=== PATIENT | female | born 1990 | race Asian ===

== ENCOUNTER → 2016-11-02 | Outpatient (CLI) | payer OTHER ==
[~2016-11-02] MED LIST: OB CCAP2 PO; PREN29TA PO
== END ==
LOC: HPND 10:16
PROVIDERS: ATTEND Family Medicine
DX: Z34.90 Encounter for supervision of normal pregnancy, unspecified, unspecified trimester (principal)
CPT/HCPCS: 76801

== ENCOUNTER → 2017-01-11 | Outpatient (CLI) | payer OTHER ==
[~2017-01-11] MED LIST changes: +AZIT500T2 PO; -PREN29TA PO
== END ==
LOC: HPND 08:05
PROVIDERS: ATTEND Family Medicine
DX: Z36 Encounter for antenatal screening of mother (principal)
CPT/HCPCS: 76811

== ENCOUNTER → 2017-04-04 | Outpatient (CLI) | payer OTHER ==
[~2017-04-04] MED LIST changes: -AZIT500T2 PO; +FERR325T18 PO; -OB CCAP2 PO
== END ==
LOC: HPND 08:05
PROVIDERS: ATTEND Family Medicine
DX: O35.1XX0 Maternal care for (suspected) chromosomal abnormality in fetus, not applicable or unspecified (principal); Z3A.00 Weeks of gestation of pregnancy not specified
CPT/HCPCS: 76816

== ENCOUNTER → 2017-05-02 | Outpatient (CLI) | payer OTHER | LOC: HPND 08:08 | PROVIDERS: ATTEND Family Medicine | DX: O35.1XX0 Maternal care for (suspected) chromosomal abnormality in fetus, not applicable or unspecified (principal); O26.843 Uterine size-date discrepancy, third trimester | CPT/HCPCS: 76816 ==

== ENCOUNTER 2017-05-28 09:13 | Inpatient (IN) | payer OTHER ==
[2017-05-28] VITALS (29 sets, daily range): BP systolic 90–135; BP diastolic 61–82; PULSE 77–109; RESP 16–18; TEMP 98.2–99.8
--- NOTE | 2017-05-28 09:49 | PD ---
HPI Travel History International Travel<30 Days: No Contact w/Intl Traveler<30Days: No Known Affected Area: No (Su Vazquez MD R1) History of Present Illness HPI 27 yr old G1PO at 38/5 weeks presenting with ROM. She is a patient of Dr. Rasta Pink. She states that her "water broke" at approximately 7:30am this morning. She came to the ED immediately after. AmniSure positive. She endorses good movement. She is darin every 4-5 min on tocometer. She denies vaginal bleeding. GBS negative. (Su Vazquez MD R1) History Past Medical History Medical History: Denies Significant Hx (Su Vazquez MD R1) Past Surgical History Surgical History: No Previous Surgery (Su Vazquez MD R1) Family History Family History: Negative (Su Vazquez MD) Social History Alcohol Use: No Tobacco Use: No Substance Abuse: No (Su Vazquez MD R1) Allergies-Medications (Allergen,Severity, Reaction): Coded Allergies: No Known Allergies (Unverified Adverse Reaction, Unknown, 04/06/17) Home Meds Active Scripts Ferrous Sulfate (Ferrous Sulfate) 325 Mg (65 Mg Iron) Tablet, 325 MG PO BIDPC for Nutritional Supplement, #60 TAB 5 Refills Prov:Rasta Pink MD R3 02/28/17 Review of Systems Except as stated in HPI: all other systems reviewed are Neg (Su Vazquez MD R1) Physical Exam Narrative GENERAL: Well-nourished, well-developed patient. SKIN: Warm and dry. HEAD: Normocephalic and atraumatic. EYES: No scleral icterus. No injection or drainage. ENT: No nasal drainage noted. Mucous membranes pink. Airway patent. NECK: Supple, trachea midline. No JVD. CARDIOVASCULAR: Regular rate and rhythm without murmurs, gallops, or rubs. RESPIRATORY: Breath sounds equal bilaterally. No accessory muscle use. ABDOMEN/GI: Abdomen soft, non-tender, bowel sounds present, no rebound, no guarding GENITOURINARY: External Genitalia: intact and normal in appearance Cervix: posterior Dilatation: 1cm Effacement: 50% Station: -3 Presentation: vertex Membranes: ruptured Uterine Contractions: every 4-5 min- FHT's: Category: 1 Baseline: 120s Reactive: yes Variability: moderate Decels: no EXTREMITIES: No cyanosis or edema. BACK: Nontender without obvious deformity. NEUROLOGICAL: Awake and alert. Motor and sensory grossly within normal limits. Five out of 5 muscle strength in all muscle groups. Normal speech. (Su Vazquez MD R1) Data Data Vital Signs Reviewed: Yes Orders Orders Ob (2e) Additional Admit Info (05/28/17 09:43) Group B Strep: Negative (Su Vazquez MD R1) MDM Medical Record Reviewed: Yes Plan 27yr old at 38/5 weeks present with ROM. Admit to L & D. 1. Intrauterine -FHTs category 1, reassuring -AmniSure positive -Cervical ripening on with Cervidil -Continue routine OB care 2. GBS negative sdw Dr. Guerra (Su Vazquez MD R1) Attending Attestation Patient seen and evaluated with resident under direct supervision, agree with assessment and plan. (Nicanor Madera MD) Su Vazquez MD R1 May 28, 2017 09:49 Nicanor Madera MD May 29, 2017 10:06
--- NOTE | 2017-05-28 09:59 | HHI.HP ---
History & Physical H&P Patient Name: Sherrill Calle Unit Number: [id number] Date of : 1990 Patient Status: Registered Emergency Room Attending Doctor: Nicanor Madera MD HPI HPI Travel History International Travel<30 Days: No Contact w/Intl Traveler<30Days: No Known Affected Area: No History of Present Illness HPI 27 yr old G1PO at 38/5 weeks presenting with ROM. She is a patient of Dr. Rasta Pink. She states that her "water broke" at approximately 7:30am this morning. She came to the ED immediately after. AmniSure positive. She endorses good movement. She is darin every 4-5 min on tocometer. She denies vaginal bleeding. GBS negative. History (Limited) History Past Medical History Medical History: Denies Significant Hx Past Surgical History Surgical History: No Previous Surgery Family History Family History: Negative Social History Alcohol Use: No Tobacco Use: No Substance Abuse: No Allergies-Medications Allergies-Medications (Allergen,Severity, Reaction): Coded Allergies: No Known Allergies (Unverified Adverse Reaction, Unknown, 04/06/17) Home Meds Active Scripts Ferrous Sulfate (Ferrous Sulfate) 325 Mg (65 Mg Iron) Tablet, 325 MG PO BIDPC for Nutritional Supplement, #60 TAB 5 Refills Prov:Rasta Pink MD R3 02/28/17 ROS Review of Systems Except as stated in HPI: all other systems reviewed are Neg Physical Exam Physical Exam Narrative GENERAL: Well-nourished, well-developed patient. SKIN: Warm and dry. HEAD: Normocephalic and atraumatic. EYES: No scleral icterus. No injection or drainage. ENT: No nasal drainage noted. Mucous membranes pink. Airway patent. NECK: Supple, trachea midline. No JVD. CARDIOVASCULAR: Regular rate and rhythm without murmurs, gallops, or rubs. RESPIRATORY: Breath sounds equal bilaterally. No accessory muscle use. ABDOMEN/GI: Abdomen soft, non-tender, bowel sounds present, no rebound, no guarding GENITOURINARY: External Genitalia: intact and normal in appearance Cervix: posterior Dilatation: 1cm Effacement: 50% Station: -3 Presentation: vertex Membranes: ruptured Uterine Contractions: every 4-5 min- FHT's: Category: 1 Baseline: 120s Reactive: yes Variability: moderate Decels: no EXTREMITIES: No cyanosis or edema. BACK: Nontender without obvious deformity. NEUROLOGICAL: Awake and alert. Motor and sensory grossly within normal limits. Five out of 5 muscle strength in all muscle groups. Normal speech. Data Data Data Vital Signs Reviewed: Yes Orders Orders Ob (2e) Additional Admit Info (05/28/17 09:43) Group B Strep: Negative MDM MDM Medical Record Reviewed: Yes Plan 27yr old at 38/5 weeks present with ROM. Admit to L & D. 1. Intrauterine -FHTs category 1, reassuring -AmniSure positive -Cervical ripening with Cervidil -Continue routine OB care 2. GBS negative sdw Su Ray MD R1 May 28, 2017 09:49 (Su Vazquez MD R1) H&P Patient seen and evaluated with resident under direct supervision, agree with assessment and plan. (Nicanor Madera MD) Su Vazquez MD R1 May 28, 2017 09:59 Nicanor Madera MD May 29, 2017 10:07
[2017-05-28] MEDS ORDERED: LACTATED RINGER'S 1000 ML INJ 1,000 ML IV PRN (10:04)
[2017-05-28] MEDS ORDERED: MINERAL OIL 10 ML VIAL TOPICAL PRN (10:15)
[2017-05-28] MEDS ORDERED: LIDOCAINE HCL 1% 50 ML VIAL I-DERMAL PRN (10:15)
[2017-05-28] MEDS ORDERED: OXYTOCIN 30 UNITS-500ML PREMIX 500 ML IV ONE (10:15)
[2017-05-28] MEDS ORDERED: LIDOCAINE HCL 1% 50 ML VIAL INFIL PRN (10:15)
[2017-05-28] MEDS ORDERED: CITRIC ACID-SODIUM CITRATE LIQ 30 ML UDC PO SCH (10:15)
[2017-05-28] MEDS ORDERED: SODIUM CHLORID 0.9% 500 ML INJ 500 ML IV PRN (10:15)
[2017-05-28 10:19] LABS: AUTOMATED NEUTROPHIL # 7.9 TH/MM3 (1.8-7.7); BASOPHIL % 0.2 % (0.0-2.0); EOSINOPHIL # 0.1 TH/MM3 (0-0.4); EOSINOPHIL % 0.8 % (0.0-4.0); HEMATOCRIT 35.1 % (35.0-46.0); HEMOGLOBIN 11.6 GM/DL (11.6-15.3); LYMPH % 21.2 % (9.0-44.0); LYMPHOCYTE # 2.5 TH/MM3 (1.0-4.8); MEAN CORPUSCULAR HEMOGLOBIN 26.8 PG (27.0-34.0); MEAN PLATELET VOLUME 7.6 FL (7.0-11.0); MONO % 9.9 % (0.0-8.0); MONOCYTE # 1.2 TH/MM3 (0-0.9); NEUT % 67.9 % (16.0-70.0); PLATELET COUNT 299 TH/MM3 (150-450); RED BLOOD COUNT 4.33 MIL/MM3 (4.00-5.30); RED CELL DISTRIBUTION WIDTH 15.4 % (11.6-17.2); WHITE BLOOD COUNT 11.7 TH/MM3 (4.0-11.0)
[2017-05-28] MEDS ORDERED: SODIUM CHLOR 0.9% 1000 ML INJ 1,000 ML IV PRN (10:24)
[2017-05-28 10:47] LABS: BACTERIA, URINE OCC /hpf; BILIRUBIN, URINE NEG (NEG); BLOOD, URINE NEG (NEG); GLUCOSE,URINE NEG (NEG); KETONE, URINE NEG (NEG); NITRITE,URINE NEG (NEG); SQUAMOUS EPITHELIAL CELL URINE 1 /hpf (0-5); URINE COLOR LIGHT-YELLOW (YELLW/STRAW); URINE LEUKOCYTE ESTERASE NEG (NEG)
[2017-05-28] MEDS ORDERED: DINOPROSTONE 10 MG VAG INSERT VAGINAL ONE (11:00)
[2017-05-28] MEDS: LACTATED RINGER'S 1000 ML INJ 1,000 ML IV SCH ×2 (11:02→18:15)
--- NOTE | 2017-05-28 13:04 | PD.LABORPN ---
Subjective Subjective Pt seen resting comfortably in bed. She denies being in any pain. She denies any additional acute concerns. (Rasta Pink MD R3) Collaborating MD Comments Patient seen and evaluated with resident under direct supervision, agree with assessment and plan. (Nicanor Madera MD) Objective Vital Signs Vital Signs Date Time Temp Pulse Resp B/P (MAP) Pulse Ox O2 Delivery O2 Flow Rate FiO2 05/28/17 12:30 16 05/28/17 11:30 98.2 05/28/17 11:29 88 116/73 (87) 05/28/17 11:29 16 05/28/17 11:00 16 05/28/17 10:24 16 05/28/17 10:23 81 98/82 (87) Objective Pelvic Exam: preformed 0945 Dilatation: 1 Effacement: 50% Station: -3 Presentation: Vertex Membranes: Ruptured at Uterine Contractions: Q1-3 minutes FHT's: Category: 1 Baseline: 130 Reactive: + Variability: moderate Decels: Absent (Rasta Pink MD R3) Assessment/Plan Assessment and Plan Pt is a 27 year old G1 at 38/5 based on LMP confirmed by US presenting due to SROM. GBS negative. -Category 1 tracing, reassuring -Cervidil in place -Continue routine expectant management -Anticipate DW Dr. Castrejon (Rasta Pink MD R3) Rasta Pink MD R3 May 28, 2017 13:03 Nicanor Madera MD May 30, 2017 07:35
--- NOTE | 2017-05-28 17:08 | PD.LABORPN ---
Subjective Subjective Oral temperature: 99.2. Pt seen resting in bed. She endorses not feeling well. She has some pain in her upper abdomen she attributes to baby's position. She denies any additional acute concerns. (Rasta Pink MD R3) Objective Vital Signs Vital Signs Date Time Temp Pulse Resp B/P (MAP) Pulse Ox O2 Delivery O2 Flow Rate FiO2 05/28/17 16:44 99.8 16 05/28/17 16:43 97 108/75 (86) 05/28/17 15:45 16 05/28/17 14:45 16 05/28/17 13:45 99.2 05/28/17 13:40 16 05/28/17 13:00 16 05/28/17 12:30 16 05/28/17 11:30 98.2 05/28/17 11:29 88 116/73 (87) 05/28/17 11:29 16 05/28/17 11:00 16 05/28/17 10:24 16 05/28/17 10:23 81 98/82 (87) Objective Pelvic Exam: preformed on 944 Cervix: soft Dilatation: 1cm Effacement: 50% Station: -3 Presentation: Vertex Membranes: ruptured Uterine Contractions: Q2-3min FHT's: Category: 1 Baseline: 1 Reactive: + Variability: Moderate Decels: absent (Rasta Pink MD R3) Assessment/Plan Assessment and Plan Pt is a 27 year old G1 at 38/5 based on LMP confirmed by US presenting due to SROM. GBS negative. -Category 1 tracing, reassuring -Continue to monitor vitals -Cervidil in place, to be removed at approximately 11:15 (after 12hrs) -Continue routine expectant management -Anticipate WDW Dr. Castrejon (Rasta Pink MD R3) Assessment and Plan Patient seen and evaluated with resident under direct supervision, agree with assessment and plan. (Nicanor Madera MD) Rasta Pink MD R3 May 28, 2017 17:08 Nicanor Madera MD May 30, 2017 07:35
[2017-05-28] MEDS ORDERED: MISOPROSTOL 100 MCG TAB VAGINAL ONE (19:45)
[2017-05-28] MEDS ORDERED: SODIUM CHLORIDE 0.9% FLUSH 10 ML FLUSH IV FLUSH PRN (19:45)
--- NOTE | 2017-05-28 19:55 | HHI.PR ---
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 Ts cat 1. Pike with ctx q1-2m. Cvx unchanged. Expectant management at this time. When ctx space, place [facility] [place] cytote. Emily Castrejon MD May 28, 2017 19:55
[2017-05-28] MEDS ORDERED: ONDANSETRON HCL 4 MG/2 ML VIAL IV PUSH PRN (20:00)
[2017-05-28] MEDS ORDERED: SODIUM CHLORIDE 0.9% FLUSH 10 ML FLUSH IV FLUSH SCH (21:00)
--- NOTE | 2017-05-28 22:14 | PD.LABORPN ---
Subjective Subjective Pt resting in bed. Contractions are more painful, she requests pain medication. (Rasta Pink MD R3) Objective Vital Signs Vital Signs Date Time Temp Pulse Resp B/P (MAP) Pulse Ox O2 Delivery O2 Flow Rate FiO2 05/28/17 19:45 18 05/28/17 19:17 18 05/28/17 19:16 99.0 05/28/17 19:16 81 119/69 (86) 05/28/17 18:15 81 116/61 (79) 05/28/17 18:15 16 05/28/17 17:29 99.2 16 05/28/17 17:02 84 114/77 (89) 05/28/17 16:44 99.8 16 05/28/17 16:43 97 108/75 (86) 05/28/17 15:45 16 05/28/17 14:45 16 Objective Pelvic Exam: Cervix: soft, stretchy Dilatation: 9-10 Effacement: 50% Station: -3 Presentation:Vertex Membranes: Ruptured Uterine Contractions: Q 1-4 minutes FHT's: Category: 1 Baseline: 130 Reactive: + Variability: Moderate Decels: Absent (Rasta Pink MD R3) Assessment/Plan Assessment and Plan Pt is a 27 year old G1 at 38/5 based on LMP confirmed by US presenting due to SROM. GBS negative. -Category 1 tracing, reassuring -Continue to monitor vitals -Cervidil no longer in place, displaced around 1945 when pt got out of bed to use the restroom -Continue routine expectant management -Cytotec 25mcg to be placed when contractions become less frequent -Anticipate WDW Dr. Castrejon (Rasta Pink MD R3) Attestation Patient seen and evaluated with resident under direct supervision, agree with assessment and plan. (Nicanor Madera MD) Rasta Pink MD R3 May 28, 2017 22:14 Nicanor Madera MD May 30, 2017 07:34
[2017-05-28] MEDS ORDERED: fentaNYL 2MCG-BUPIV 0.125% INJ 100 ML ONE (23:35)
[2017-05-29] VITALS (76 sets, daily range): BP systolic 100–145; BP diastolic 55–88; PULSE 68–112; RESP 16–20; TEMP 97.7–101; O2SAT 97–100
--- NOTE | 2017-05-29 03:29 | PD.LABORPN ---
Subjective Subjective Pt resting comfortably. Pain controlled with epidural. (Rasta Pink MD R3) Objective Vital Signs Vital Signs Date Time Temp Pulse Resp B/P (MAP) Pulse Ox O2 Delivery O2 Flow Rate FiO2 05/29/17 03:00 78 107/65 (79) 05/29/17 02:30 71 105/64 (78) 05/29/17 02:29 98.8 05/29/17 02:15 75 101/66 (78) 05/29/17 02:00 70 110/69 (83) 05/29/17 01:45 76 105/66 (79) 05/29/17 01:30 72 101/64 (76) 05/29/17 01:15 74 105/61 (76) 05/29/17 01:00 79 102/62 (75) 05/29/17 00:45 74 104/62 (76) 05/29/17 00:30 71 102/63 (76) 05/29/17 00:15 92 105/58 (74) 05/29/17 00:15 75 05/29/17 00:15 98.9 05/29/17 00:10 102 05/29/17 00:06 95 113/64 (80) 05/29/17 00:05 83 05/29/17 00:03 85 103/63 (76) 05/29/17 00:00 96 05/29/17 00:00 110 108/65 (79) 05/28/17 23:57 97 112/65 (81) 05/28/17 23:55 88 05/28/17 23:54 83 131/71 (91) 05/28/17 23:51 77 135/73 (93) 05/28/17 23:50 99 05/28/17 23:48 109 134/79 (97) 05/28/17 23:45 88 05/28/17 23:45 104 131/62 (85) 05/28/17 23:44 90/64 (73) 05/28/17 23:44 106 05/28/17 23:40 87 05/28/17 21:45 98.9 05/28/17 19:45 18 Objective Pelvic Exam: Cervix: midposition, soft and stretchy Dilatation: 6-7 Effacement: 60% Station: -3 Presentation: vertex Membranes: ruptured Uterine Contractions: Q2-4 minutes FHT's: Category: 1 Baseline: 130 Reactive: + Variability: Moderate Decels: Early (Rasta Pink MD R3) Assessment/Plan Assessment and Plan Pt is a 27 year old G1 at 38/6 based on LMP confirmed by US in active labor. -Category 1 tracing, reassuring -Continue to monitor vitals -Will start Pitocin at rate of 1-1-30 -Continue routine expectant management -Anticipate DW Dr. Castrejon (Rasta Pink MD R3) Assessment and Plan Patient seen and evaluated with resident under direct supervision, agree with assessment and plan. (Nicanor Madera MD) Rasta Pink MD R3 May 29, 2017 03:29 Nicanor Madera MD May 30, 2017 07:33
[2017-05-29] MEDS ORDERED: OXYTOCIN 30 UNITS-500ML PREMIX 500 ML ONE (03:44)
[2017-05-29] MEDS ORDERED: OXYTOCIN 30 UNITS-500ML PREMIX 500 ML IV PRN (03:45)
--- NOTE | 2017-05-29 07:50 | PD.LABORPN ---
Subjective Subjective Pitocin at rate of 7. Pt afebrile. Rupture time slightly over 24hrs. (Rasta Pink MD R3) Objective Vital Signs Vital Signs Date Time Temp Pulse Resp B/P (MAP) Pulse Ox O2 Delivery O2 Flow Rate FiO2 05/29/17 07:30 89 118/57 (77) 05/29/17 07:15 94 120/65 (83) 05/29/17 07:02 98.5 16 05/29/17 07:00 98 126/74 (91) 05/29/17 06:45 89 126/77 (93) 05/29/17 06:30 91 118/73 (88) 05/29/17 06:15 80 110/68 (82) 05/29/17 06:00 87 104/65 (78) 05/29/17 05:45 85 105/69 (81) 05/29/17 05:30 83 121/70 (87) 05/29/17 05:15 89 118/65 (82) 05/29/17 05:00 98.7 05/29/17 05:00 95 122/76 (91) 05/29/17 04:45 82 119/68 (85) 05/29/17 04:30 97 111/71 (84) 05/29/17 04:15 93 115/68 (84) 05/29/17 04:15 18 05/29/17 04:00 92 113/69 (84) 05/29/17 03:45 84 114/66 (82) 05/29/17 03:30 92 112/74 (87) 05/29/17 03:15 88 128/72 (90) 05/29/17 03:00 78 107/65 (79) 05/29/17 02:45 68 100/64 (76) 05/29/17 02:30 71 105/64 (78) 05/29/17 02:29 98.8 05/29/17 02:15 75 101/66 (78) 05/29/17 02:00 70 110/69 (83) 05/29/17 01:45 76 105/66 (79) 05/29/17 01:30 72 101/64 (76) 05/29/17 01:15 74 105/61 (76) 05/29/17 01:00 79 102/62 (75) 05/29/17 00:45 74 104/62 (76) 05/29/17 00:30 71 102/63 (76) 05/29/17 00:15 92 105/58 (74) 05/29/17 00:15 75 05/29/17 00:15 98.9 05/29/17 00:10 102 05/29/17 00:06 95 113/64 (80) 05/29/17 00:05 83 05/29/17 00:03 85 103/63 (76) 05/29/17 00:00 96 05/29/17 00:00 110 108/65 (79) 05/28/17 23:57 97 112/65 (81) 05/28/17 23:55 88 05/28/17 23:54 83 131/71 (91) 05/28/17 23:51 77 135/73 (93) Objective Pelvic Exam: Cervix: Soft stretchy Dilatation: 7cm Effacement: 90% Station: -2 Presentation: Vertex Membranes: Ruptured Uterine Contractions: Q1-2 minutes FHT's: Category: 1 Baseline: 120 Reactive: + Variability: Moderate Decels: Early (Rasta Pink MD R3) Assessment/Plan Assessment and Plan Pt is a 27 year old G1 at 38/6 based on LMP confirmed by US in active labor. -Category 1 tracing, reassuring -Continue to monitor vitals -Continue Pitocin, increase at rate of 1-1-30 -Continue routine expectant management -Anticipate WDW Dr. Castrejon (Rasta Pink MD R3) Assessment and Plan Patient seen and evaluated with resident under direct supervision, agree with assessment and plan. (Nicanor Madera MD) Rasta Pink MD R3 May 29, 2017 07:50 Nicanor Madera MD May 30, 2017 07:32
[2017-05-29] MEDS ORDERED: fentaNYL 2MCG-BUPIV 0.125% INJ 100 ML ONE (08:09)
--- NOTE | 2017-05-29 11:08 | PD.LABORPN ---
Subjective Subjective Pt resting in bed. Pain well controlled with epidural. She endorses pressure in lower abdomen and lower back. Pitocin at 10. (Rasta Pink MD R3) Objective Vital Signs Vital Signs Date Time Temp Pulse Resp B/P (MAP) Pulse Ox O2 Delivery O2 Flow Rate FiO2 05/29/17 10:45 86 123/72 (89) 05/29/17 10:30 90 110/64 (79) 05/29/17 10:15 96 128/74 (92) 05/29/17 10:00 93 130/76 (94) 05/29/17 09:45 93 126/81 (96) 05/29/17 09:30 92 125/74 (91) 05/29/17 09:17 99.0 18 05/29/17 09:15 89 133/82 (99) 05/29/17 09:00 111 118/81 (93) 05/29/17 08:45 16 05/29/17 08:45 87 133/80 (97) 05/29/17 08:30 98 124/67 (86) 05/29/17 08:15 105 118/68 (85) 05/29/17 08:00 91 115/55 (75) 05/29/17 07:45 96 119/81 (94) 05/29/17 07:30 89 118/57 (77) 05/29/17 07:15 94 120/65 (83) 05/29/17 07:02 98.5 16 05/29/17 07:00 98 126/74 (91) 05/29/17 06:45 89 126/77 (93) 05/29/17 06:30 91 118/73 (88) 05/29/17 06:15 80 110/68 (82) 05/29/17 06:00 87 104/65 (78) 05/29/17 05:45 85 105/69 (81) 05/29/17 05:30 83 121/70 (87) 05/29/17 05:15 89 118/65 (82) 05/29/17 05:00 98.7 05/29/17 05:00 95 122/76 (91) 05/29/17 04:45 82 119/68 (85) 05/29/17 04:30 97 111/71 (84) 05/29/17 04:15 93 115/68 (84) 05/29/17 04:15 18 05/29/17 04:00 92 113/69 (84) 05/29/17 03:45 84 114/66 (82) 05/29/17 03:30 92 112/74 (87) 05/29/17 03:15 88 128/72 (90) Objective Pelvic Exam: Cervix: Soft, midposition Dilatation: 9-10 Effacement: 100% Station: 0 Presentation: Vertex Membranes: Ruptured Uterine Contractions: Q1-2 minutes FHT's: Category: 1 Baseline: 125 Reactive: + Variability: moderate Decels: Absent (Rasta Pink MD R3) Assessment/Plan Assessment and Plan Pt is a 27 year old G1 at 38/6 based on LMP confirmed by US in active labor. -Category 1 tracing, reassuring -Continue to monitor vitals -Continue Pitocin at rate of 1-1-30 -Continue routine expectant management -Pt counseled regarding pushing -Anticipate DW Dr. Madera (Rasta Pink MD R3) Assessment and Plan Patient seen and evaluated with resident under direct supervision, agree with assessment and plan. (Nicanor Madera MD) Rasta Pink MD R3 May 29, 2017 11:08 Nicanor Madera MD May 29, 2017 14:23
[2017-05-29] MEDS ORDERED: PHENYLEPH/NS 1000 MCG/10 ML SYR IV ONE (12:00)
[2017-05-29] MEDS ORDERED: LIDOCAINE 2%/EPINEPHrine PF 1:200,000 20ML SDV OTHER ONE (12:00)
[2017-05-29] MEDS ORDERED: DEXAMETHASONE SOD PHOS 4 MG/ML VIAL IV ONE (12:00)
[2017-05-29] MEDS ORDERED: LACTATED RINGER'S 1000 ML INJ 1,000 ML IV ONE (12:00)
[2017-05-29] MEDS ORDERED: ONDANSETRON HCL 4 MG/2 ML VIAL IV ONE (12:00)
[2017-05-29] MEDS ORDERED: OXYTOCIN 10 UNIT/ML AMP IV ONE (12:00)
[2017-05-29] MEDS ORDERED: AMPICILLIN INJ 2,000 MG in SODIUM CHLORIDE 0.9% INJ 100 ML IV SCH (14:00)
[2017-05-29] MEDS ORDERED: TRANEXAMIC ACID INJ 1,000 MG/10 ML AMP ONE (14:37)
[2017-05-29] MEDS ORDERED: CARBOPROST TROMETHAMINE 250 MCG/ML VIAL ONE (14:39)
[2017-05-29] MEDS ORDERED: METHYLERGONOVINE MALEATE 0.2 MG/ML VIAL ONE (14:39)
[2017-05-29] MEDS ORDERED: MORPHINE SULFATE PF 5 MG/10 ML VIAL ONE (14:50)
[2017-05-29] MEDS ORDERED: CLINDAMYCIN 900 MG/NS PREMIX 50 ML IV ONE ×3 (15:00→22:30)
[2017-05-29] MEDS ORDERED: GENTAMICIN IV SCH (15:00)
[2017-05-29] MEDS ORDERED: SODIUM CHLORIDE 0.9% IV SCH (15:00)
[2017-05-29] MEDS ORDERED: ACETAMINOPHEN 1000 MG/100 ML 100 ML IV ONE (15:53)
[2017-05-29] MEDS ORDERED: OXYTOCIN 30 UNITS-500ML PREMIX 500 ML IV ONE (16:00)
[2017-05-29] MEDS ORDERED: SODIUM CHLORIDE 0.9% FLUSH 10 ML FLUSH IV FLUSH PRN (16:00)
[2017-05-29] MEDS ORDERED: ONDANSETRON HCL 4 MG/2 ML VIAL IV PUSH PRN (16:00)
--- NOTE | 2017-05-29 16:06 | PD.OP ---
Operative Report Date of Surgery: May 29, 2017 Preoperative Diagnosis: Arrest of second stage of labor Postoperative Diagnosis: Same Procedure: Primary lower uterine segment transverse section with 2 layer uterine closure Patient was taken to the operating room and after administration of a satisfactory level of her epidural use for labor she was prepped and draped in dorsal supine position. A transverse lower abdominal incision was made and the subcutaneous tissue sharply dissected away down to level of the fascia which was nicked in the midline and extended bilaterally with scissors. The fascia was from the underlying muscle with sharp and blunt dissection. The peritoneal cavity was bluntly entered. Bladder flap was created with sharp dissection. A transverse hysterotomy was created in the lower uterine segment. membranes were encountered and clear fluid noted. The hysterotomy was extended with digital traction. The vertex was elevated out of the pelvic inlet and delivered easily through the hysterotomy. The remainder of the infant followed easily. Delayed cord clamping was accomplished. The placenta delivered spontaneously with fundal massage and gentle traction. The uterine cavity was wiped with a moistened lap sponge. The hysterotomy was then closed with a running suture of 0 Monocryl. Second imbricating layer of 0 Monocryl was used over the first. Uterine tone was established with IV Pitocin solution and 0.2 mg of IM Methergine. The posterior cul-de-sac and paracolic gutters were evacuated of amniotic fluid and blood. Hemostasis was noted to be excellent. The fascia was closed anteriorly with #1 PDS. The septations tissue was closed with 3-0 Vicryl and the skin with 4-0 silk particular Vicryl and tissue glue. Estimated blood loss 700 cc Competitions: None Sponge instrument needle counts are correct 3. Anesthesia: Epidural Surgeon: Nicanor Madera Cheese Cooker(s): Atif Lopez RN Operation and Findings: Normal appearing tubes ovaries and uterus Nicanor Madera MD May 29, 2017 16:06
[2017-05-29] MEDS ORDERED: ePHEDrine/NS 25 MG/5 ML SYRINGE IV PUSH PRN (17:15)
[2017-05-29] MEDS ORDERED: fentaNYL 2MCG-BUPIV 0.125% 100 ML EPIDURAL SCH (17:15)
[2017-05-29] MEDS ORDERED: DO NOT ADMINISTER ANTICOAGULANTS PRN (17:15)
[2017-05-29] MEDS ORDERED: NO SYSTEM NARCOTICS PRN (17:15)
[2017-05-29] MEDS ORDERED: AMPICILLIN INJ 2,000 MG in SODIUM CHLORIDE 0.9% INJ 100 ML IV ONE (20:00)
[2017-05-29] MEDS ORDERED: LACTATED RINGER'S 1000 ML INJ 1,000 ML IV SCH (20:49)
[2017-05-29] MEDS: SODIUM CHLORIDE 0.9% FLUSH 10 ML FLUSH IV FLUSH SCH (21:00)
[2017-05-29] MEDS ORDERED: AMPICILLIN 250 MG VIAL IV PUSH ONE (22:30)
[2017-05-29] MEDS ORDERED: AMPICILLIN 2 GM/NS 100 ML IV ONE ×2 (22:45)
[2017-05-30] VITALS (8 sets, daily range): BP systolic 82–128; BP diastolic 54–72; PULSE 16–98; RESP 8–18; TEMP 97.8–98.8; O2SAT 96–98
[2017-05-30] MEDS ORDERED: OXYTOCIN 30 UNITS-500ML PREMIX 500 ML IV PRN (02:00)
[2017-05-30] MEDS: IBUPROFEN 600 MG TAB PO PRN ×4 (05:36→23:50)
[2017-05-30] MEDS: oxyCODONE/ACETAMINOPHEN 5 MG/325 MG TAB PO PRN ×5 (05:36→23:50)
[2017-05-30 05:52] LABS: BASOPHIL % 0.2 % (0.0-2.0); EOSINOPHIL % 0.1 % (0.0-4.0); HEMATOCRIT 28.1 % (35.0-46.0); HEMOGLOBIN 9.4 GM/DL (11.6-15.3); LYMPH % 7.2 % (9.0-44.0); LYMPHOCYTE # 1.7 TH/MM3 (1.0-4.8); MEAN CELL VOLUME 80.9 FL (80.0-100.0); MEAN CORPUSCULAR HEMOGLOBIN 27.2 PG (27.0-34.0); MEAN CORPUSCULAR HGB CONC 33.6 % (32.0-36.0); MEAN PLATELET VOLUME 7.6 FL (7.0-11.0); MONO % 7.5 % (0.0-8.0); MONOCYTE # 1.8 TH/MM3 (0-0.9); PLATELET COUNT 227 TH/MM3 (150-450); RED BLOOD COUNT 3.47 MIL/MM3 (4.00-5.30); RED CELL DISTRIBUTION WIDTH 16.1 % (11.6-17.2); WHITE BLOOD COUNT 23.5 TH/MM3 (4.0-11.0)
--- NOTE | 2017-05-30 08:33 | HHI.OB ---
Subjective Post Operative Day: 1 Remarks Postoperative day number 1. AFVSS overnight. Pain controlled with medications. Incision not draining. Decreased lochia. Denies dysuria. No breast tenderness. She is feeding the baby via breast. Appetite good. No nausea or vomiting. Endorses flatus. No bowel movement. Ambulating well. Denies calf pain, shortness of breath, or cough. Otherwise, she is doing well this morning and has no other complaints. (Nico Baltazar MD) Remarks Patient seen and evaluated with resident under direct supervision, agree with assessment and plan. (Nicanor Madera MD) Objective Vitals/I&O Vital Signs Date Time Temp Pulse Resp B/P (MAP) Pulse Ox O2 Delivery O2 Flow Rate FiO2 05/30/17 01:00 89 05/30/17 00:00 98.1 16 8 109/70 (83) 96 05/30/17 00:00 89 16 05/29/17 20:40 97.9 05/29/17 20:40 97.7 05/29/17 20:40 70 17 117/76 (90) 97 05/29/17 20:40 97.8 05/29/17 17:23 98.2 05/29/17 17:23 72 20 124/72 (89) 05/29/17 16:59 85 18 118/62 (80) 100 05/29/17 16:45 77 18 121/65 (83) 99 05/29/17 16:39 98.5 05/29/17 16:34 79 16 109/57 (74) 05/29/17 16:34 100 05/29/17 16:20 85 18 108/58 (75) 99 05/29/17 16:05 98 18 109/57 (74) 99 05/29/17 16:00 100.1 05/29/17 16:00 97 16 102/56 (71) 99 05/29/17 14:00 90 116/64 (81) 05/29/17 13:46 97 116/68 (84) 05/29/17 13:30 89 129/75 (93) 05/29/17 13:20 101.0 05/29/17 13:16 88 107/56 (73) 05/29/17 13:12 16 05/29/17 13:00 99 145/78 (100) 05/29/17 12:45 95 110/82 (91) 05/29/17 12:31 104 140/58 (85) 05/29/17 12:16 112 134/88 (103) 05/29/17 12:00 87 127/78 (94) 05/29/17 11:45 88 128/69 (88) 05/29/17 11:31 101 117/79 (92) 05/29/17 11:15 98 120/78 (92) 05/29/17 11:09 99.0 18 05/29/17 11:00 83 108/75 (86) 05/29/17 10:45 86 123/72 (89) 05/29/17 10:30 90 110/64 (79) 05/29/17 10:15 96 128/74 (92) 05/29/17 10:00 93 130/76 (94) 05/29/17 09:45 93 126/81 (96) 05/29/17 09:30 92 125/74 (91) 05/29/17 09:17 99.0 18 05/29/17 09:15 89 133/82 (99) 05/29/17 09:00 111 118/81 (93) 05/29/17 08:45 16 05/29/17 08:45 87 133/80 (97) (Nico Baltazar MD) Result Diagram: 05/30/17 0528 Objective Remarks GENERAL: Well-nourished, well-developed patient. CARDIOVASCULAR: Regular rate and rhythm without murmurs, gallops, or rubs. RESPIRATORY: Breath sounds equal bilaterally. No accessory muscle use. ABDOMEN/GI: Abdomen soft, non-tender, bowel sounds present. Incision: Clean, dry and intact. Fundus: Firm, non-tender at umbilicus. GENITOURINARY: Light to moderate bleeding. EXTREMITIES: No cyanosis or edema, non-tender, without signs of DVT. Medications and IVs Current Medications Medications (Trade) Dose Ordered Sig/Chad Route Start Time Stop Time Status Last Admin Lactated Ringer's 1,000 ml @ 100 mls/hr Q10H IV 05/29/17 20:49 05/30/17 16:48 05/29/17 22:54 Oxytocin 500 ml @ 100 mls/hr UNSCH X1 PRN IV 05/30/17 02:00 05/31/17 01:59 (NS Flush) 2 ml BID IV FLUSH 05/29/17 21:00 (NS Flush) 2 ml UNSCH PRN IV FLUSH 05/29/17 16:00 (Motrin) 600 mg Q6H PRN PO 05/29/17 16:00 05/30/17 05:36 (Percocet 5-325 Mg) 1 tab Q4H PRN PO 05/29/17 16:00 05/30/17 05:36 (Percocet 5-325 Mg) 2 tab Q4H PRN PO 05/29/17 16:00 (Sparkle-Colace) 2 tab Q12H PRN PO 05/29/17 16:00 (M-M-R Ii Inj) 0.5 ml ONCE ONCE SQ 05/30/17 16:00 05/30/17 16:01 (Boostrix Inj) 0.5 ml ONCE ONCE IM 05/30/17 16:00 05/30/17 16:01 (Zofran Inj) 4 mg Q6H PRN IV PUSH 05/29/17 16:00 Miscellaneous Information No systemic narcotics to be given except... UNSCH PRN .XX 05/29/17 17:15 05/30/17 17:14 Miscellaneous Information DO NOT ADMINISTER ANY ANTICOAGUL... UNSCH PRN .XX 05/29/17 17:15 05/30/17 17:14 Fentanyl/ Bupivacaine HCl 100 ml @ 0 mls/hr TITRATE EPIDURAL 05/29/17 17:15 (ePHEDrine/NS 25 MG/5 ML SYR) 10 mg UNSCH PRN IV PUSH 05/29/17 17:15 05/30/17 17:14 (Nico Baltazar MD) Assessment/Plan Assessment and Plan 27 y/o female who is POD# 1 s/p CXN. -Continue routine care. -Percocet and Motrin PRN pain. -Encouraged OOB. Advised pelvic rest for 6 wks. Will need a f/u appt. in 1 wk for incision check. -Re: ctrl, she is undecided -D/c in 1-2 more days. wdw OB attending (Nico Baltazar MD) Nico Baltazar MD May 30, 2017 08:33 Nicanor Madera MD May 30, 2017 09:26
[2017-05-30] MEDS ORDERED: WITCH HAZEL 50%/GLYCERIN 12.5% 40 PAD JAR TOPICAL PRN (08:45)
[2017-05-30] MEDS: DOCUSATE SODIUM 50 MG/SENNA 8.6 MG TAB PO PRN ×2 (11:25→23:50)
[2017-05-30] MEDS ORDERED: MEASLES, MUMPS, RUBELLA VACCINE 0.5 ML VIAL SQ ONE (16:00)
[2017-05-30] MEDS ORDERED: DIPHTH/TETANUS/ACEL PERTUSSIS (BOOSTER) 0.5 ML VIAL/PFS IM ONE (16:00)
[2017-05-30] MEDS: SODIUM CHLORIDE 0.9% FLUSH 10 ML FLUSH IV FLUSH SCH (19:40)
[2017-05-30] MEDS: SIMETHICONE 80 MG CHEWABLE TAB PO PRN (19:45)
[2017-05-31] MEDS: oxyCODONE/ACETAMINOPHEN 5 MG/325 MG TAB PO PRN ×5 (01:00→19:43)
[2017-05-31] MEDS: IBUPROFEN 600 MG TAB PO PRN ×3 (05:40→17:46)
[2017-05-31 08:00] VITALS: BP_SYST 100; BP_SYST 123; BP_DIAS 56; BP_DIAS 79; PULSE 110; RESP 16; TEMP 98; O2SAT 96
--- NOTE | 2017-05-31 08:33 | HHI.OB ---
Subjective Post Operative Day: 2 Remarks Postoperative day number 2. AFVSS overnight. Pain controlled with medications. Incision not draining. Decreased lochia. Denies dysuria. No breast tenderness. She is feeding the baby via breast and bottle. Appetite good. No nausea or vomiting. Endorses flatus. No bowel movement. Ambulating well. Denies calf pain, shortness of breath, or cough. Otherwise, she is doing well this morning and has no other complaints. Objective Result Diagram: 05/30/17 0528 Objective Remarks GENERAL: Well-nourished, well-developed patient. CARDIOVASCULAR: Regular rate and rhythm without murmurs, gallops, or rubs. RESPIRATORY: Breath sounds equal bilaterally. No accessory muscle use. ABDOMEN/GI: Abdomen soft, non-tender, bowel sounds present. Incision: Clean, dry and intact. Fundus: Firm, non-tender at umbilicus. GENITOURINARY: Light to moderate bleeding. EXTREMITIES: No cyanosis or edema, non-tender, without signs of DVT. Medications and IVs Current Medications Medications (Trade) Dose Ordered Sig/Chad Route Start Time Stop Time Status Last Admin (NS Flush) 2 ml BID IV FLUSH 05/29/17 21:00 (NS Flush) 2 ml UNSCH PRN IV FLUSH 05/29/17 16:00 (Motrin) 600 mg Q6H PRN PO 05/29/17 16:00 05/31/17 05:40 (Percocet 5-325 Mg) 1 tab Q4H PRN PO 05/29/17 16:00 05/31/17 01:00 (Percocet 5-325 Mg) 2 tab Q4H PRN PO 05/29/17 16:00 05/31/17 05:41 (Sparkle-Colace) 2 tab Q12H PRN PO 05/29/17 16:00 05/30/17 23:50 (Zofran Inj) 4 mg Q6H PRN IV PUSH 05/29/17 16:00 Fentanyl/ Bupivacaine HCl 100 ml @ 0 mls/hr TITRATE EPIDURAL 05/29/17 17:15 (Tucks Pads) 1 applic UNSCH PRN TOPICAL 05/30/17 08:45 (Mylicon Chew) 80 mg Q6H PRN PO 05/30/17 19:15 2/12/18 19:45 Assessment/Plan Assessment and Plan 27 y/o female who is POD# 2 s/p CXN. -Pt has been afebrile -Will recheck CBC due to leukocytosis -Continue routine care. -Percocet and Motrin PRN pain. -Encouraged OOB. Advised pelvic rest for 6 wks. Will need a f/u appt. in 1 wk for incision check. -Re: ctrl, she is undecided -D/c tomorrow. [facility] OB attending Rasta Pink MD R3 May 31, 2017 08:33
[2017-05-31] MEDS: SODIUM CHLORIDE 0.9% FLUSH 10 ML FLUSH IV FLUSH SCH ×2 (09:00→21:00)
[2017-05-31] MEDS ORDERED: OXYC1TAB63 PO (09:31)
[2017-05-31] MEDS ORDERED: IBUP-232 PO (09:31)
[2017-05-31] MEDS ORDERED: PERI PO (09:31)
--- NOTE | 2017-05-31 09:33 | HHI.DCPOC ---
Discharge Care Plan Diagnosis: (1) Intrapartum fever (2) Leucocytosis (3) delivery delivered Report Symptoms to Your Doctor -Temperature above 100.5 degrees -Redness, of incision or excessive or foul smelling drainage -Unusual pain or calf pain -Increased vaginal bleeding -Painful or difficulty urinating -Feelings of extreme sadness or anxiety after 2 weeks Goals to Promote Your Health * To prevent worsening of your condition and complications * To maintain your health at the optimal level Directions to Meet Your Goals Take your medications as prescribed Follow your dietary instruction Follow activity as directed Ensure plenty of rest for recovery Drink fluids for hydration Keep your appointments as scheduled Take your immunizations and boosters as scheduled If your symptoms worsen call your PCP, if no PCP go to Urgent Care Center or Emergency Room Smoking is Dangerous to Your Health. Avoid second hand smoke Call the 24-hour crisis hotline for domestic abuse at Rasta Pink MD R3 May 31, 2017 09:33
[2017-05-31] MEDS: DOCUSATE SODIUM 50 MG/SENNA 8.6 MG TAB PO PRN (11:49)
[2017-05-31 14:01] LABS: AUTOMATED NEUTROPHIL # 11.2 TH/MM3 (1.8-7.7); BASOPHIL % 0.3 % (0.0-2.0); EOSINOPHIL # 0.2 TH/MM3 (0-0.4); EOSINOPHIL % 1.8 % (0.0-4.0); HEMATOCRIT 25.3 % (35.0-46.0); HEMOGLOBIN 8.4 GM/DL (11.6-15.3); LYMPH % 11.8 % (9.0-44.0); LYMPHOCYTE # 1.7 TH/MM3 (1.0-4.8); MEAN CELL VOLUME 81.2 FL (80.0-100.0); MEAN CORPUSCULAR HEMOGLOBIN 26.9 PG (27.0-34.0); MEAN CORPUSCULAR HGB CONC 33.2 % (32.0-36.0); MEAN PLATELET VOLUME 7.3 FL (7.0-11.0); MONO % 6.6 % (0.0-8.0); MONOCYTE # 0.9 TH/MM3 (0-0.9); NEUT % 79.5 % (16.0-70.0); PLATELET COUNT 301 TH/MM3 (150-450); RED BLOOD COUNT 3.11 MIL/MM3 (4.00-5.30); WHITE BLOOD COUNT 14.1 TH/MM3 (4.0-11.0)
[2017-05-31] MEDS: SIMETHICONE 80 MG CHEWABLE TAB PO PRN (19:43)
[2017-05-31 20:00] VITALS: BP 117/69; PULSE 102; RESP 18; TEMP 98.2; O2SAT 97
[2017-06-01] MEDS: oxyCODONE/ACETAMINOPHEN 5 MG/325 MG TAB PO PRN ×3 (00:15→12:04)
[2017-06-01] MEDS: DOCUSATE SODIUM 50 MG/SENNA 8.6 MG TAB PO PRN ×2 (00:16→12:04)
[2017-06-01] MEDS: IBUPROFEN 600 MG TAB PO PRN ×3 (00:16→12:04)
[2017-06-01] MEDS: SIMETHICONE 80 MG CHEWABLE TAB PO PRN (05:58)
--- NOTE | 2017-06-01 07:57 | HHI.OB ---
Subjective Post Operative Day: 3 Remarks Postoperative day number 3. AFVSS overnight. Pain well-controlled. Incision not draining. Decreased lochia. Denies dysuria. No breast tenderness. She is feeding the baby via breast. Appetite good. No nausea or vomiting. Endorses flatus. No bowel movement. Ambulating well. Denies calf pain, shortness of breath, or cough. Otherwise, she is doing well this morning and has no other complaints. Objective Vitals/I&O Vital Signs Date Time Temp Pulse Resp B/P (MAP) Pulse Ox O2 Delivery O2 Flow Rate FiO2 05/31/17 20:00 117/69 (85) 05/31/17 20:00 102 18 97 05/31/17 20:00 98.2 05/31/17 08:00 100/56 (71) 05/31/17 08:00 98.0 110 16 123/79 (94) 96 Result Diagram: 05/31/17 1348 Objective Remarks GENERAL: Well-nourished, well-developed patient. CARDIOVASCULAR: Regular rate and rhythm without murmurs, gallops, or rubs. RESPIRATORY: Breath sounds equal bilaterally. No accessory muscle use. ABDOMEN/GI: Abdomen soft, non-tender, bowel sounds present. Incision: Clean, dry and intact. Fundus: Firm, non-tender at umbilicus. GENITOURINARY: Light to moderate bleeding. EXTREMITIES: No cyanosis or edema, non-tender, without signs of DVT. Medications and IVs Current Medications Medications (Trade) Dose Ordered Sig/Chad Route Start Time Stop Time Status Last Admin (NS Flush) 2 ml BID IV FLUSH 05/29/17 21:00 (NS Flush) 2 ml UNSCH PRN IV FLUSH 05/29/17 16:00 (Motrin) 600 mg Q6H PRN PO 05/29/17 16:00 06/01/17 05:59 (Percocet 5-325 Mg) 1 tab Q4H PRN PO 05/29/17 16:00 06/01/17 05:59 (Percocet 5-325 Mg) 2 tab Q4H PRN PO 05/29/17 16:00 05/31/17 05:41 (Sparkle-Colace) 2 tab Q12H PRN PO 05/29/17 16:00 06/01/17 00:16 (Zofran Inj) 4 mg Q6H PRN IV PUSH 05/29/17 16:00 Fentanyl/ Bupivacaine HCl 100 ml @ 0 mls/hr TITRATE EPIDURAL 05/29/17 17:15 (Tucks Pads) 1 applic UNSCH PRN TOPICAL 05/30/17 08:45 (Mylicon Chew) 80 mg Q6H PRN PO 05/30/17 19:15 06/01/17 05:58 Assessment/Plan Assessment and Plan 27 y/o female who is POD# 3 s/p CXN. -Pt has been afebrile -Will recheck CBC due to leukocytosis -Continue routine care. -Percocet and Motrin PRN pain. -Encouraged OOB. Advised pelvic rest for 6 wks. Will need a f/u appt. in 1 wk for incision check. -Re: ctrl, she is undecided -D/c today Nico Baltazar MD Jun 01, 2017 07:57
[2017-06-01 08:00] VITALS: BP 142/89; PULSE 95; RESP 16; TEMP 98
[2017-06-01] MEDS: SODIUM CHLORIDE 0.9% FLUSH 10 ML FLUSH IV FLUSH SCH (09:06)
== END 2017-06-01 16:22 | disposition home or self-care (01) | DRG 765 ==
LOC: HOBED 09:13 → H2EB 09:57 → H1EA 05-29 17:16
PROVIDERS: ADMIT Obstetrics & Gynecology; ATTEND Obstetrics & Gynecology
PROC: 10D00Z1 Extraction of Products of Conception, Low, Open Approach (ICD-10-PCS; principal; 2017-05-29)
DX: O62.1 Secondary uterine inertia (principal); O75.2 Pyrexia during labor, not elsewhere classified; O99.12 Other diseases of the blood and blood-forming organs and certain disorders involving the immune mechanism complicating childbirth; Z37.0 Single live birth; D72.829 Elevated white blood cell count, unspecified; Z3A.38 38 weeks gestation of pregnancy
CPT/HCPCS: 80307; 81001; 84112; 85025; 86900; 86901; 88307; J0131; J0290; J1100; J1580; J2210; J2274; J2370; J2405; J2590; J3010; J7120